=== PATIENT | female | born 1995 | race African-American/Black ===

== ENCOUNTER 2018-06-01 03:58 | Emergency (ER) | payer MEDICAID ==
[~2018-06-01] VITALS: Ht 182.9 cm; Wt 60.0 kg
[~2018-06-01 03:58] MED LIST: FERROUS SULFATE
[2018-06-01] MEDS ORDERED: LIDOCAINE HCL 1% 20ML VIAL (Pyxis) INJ INFIL ONE (07:30)
[2018-06-01 09:00] VITALS: BP 132/85
== END 2018-06-01 09:05 | disposition home or self-care (01) ==
LOC: ER 03:58
DX: S01.412A Laceration without foreign body of left cheek and temporomandibular area, initial encounter (principal); X99.1XXA Assault by knife, initial encounter; Y93.9 Activity, unspecified; Y92.9 Unspecified place or not applicable
CPT/HCPCS: 12015; 81025; 99283; Z7610